=== PATIENT | female | born 1955 | race Caucasian/White ===

== ENCOUNTER → 2024-08-05 10:01 | Outpatient (REF) | payer OTHER, SELFPAY | LOC: HWWDC 10:01 | PROVIDERS: ATTENDING PHYSICIAN Family Medicine | DX: Z12.31 Encounter for screening mammogram for malignant neoplasm of breast (principal) | CPT/HCPCS: 77063; 77067 ==

== ENCOUNTER → 2024-11-03 08:48 | Outpatient (REF) | payer OTHER, SELFPAY | LOC: HWRAD 08:48 | PROVIDERS: ATTENDING PHYSICIAN Family Medicine | DX: Z13.820 Encounter for screening for osteoporosis (principal) | CPT/HCPCS: 77080 ==